=== PATIENT | female | born 1960 | race Two or more races ===

== ENCOUNTER 2018-10-08 06:36 | Day surgery (SDC) | payer OTHER ==
[~2018-10-08 06:36] MED LIST: OLMESARTAN-HCT1 EACH PO; SINGULAIR10 MG PO
[2018-10-08] MEDS ORDERED: NAPROXEN SODIU550 MG PO (13:20)
== END 2018-10-08 14:05 | disposition home or self-care (01) ==
LOC: CIR.AMB 06:36
DX: N84.0 Polyp of corpus uteri (principal)

== ENCOUNTER 2022-09-26 06:46 | Day surgery (SDC) | payer OTHER ==
[~2022-09-26] VITALS: Ht 162.6 cm; Wt 108.9 kg
[~2022-09-26 06:46] MED LIST changes: +BENICAR HCT 201 EACH PO; +EC PO; +NAPROXEN SODIU550 MG PO; +VITAMIN C100 MG PO; +VITAMIN E PO
[2022-09-26] MEDS ORDERED: IBU600 MG PO (10:27)
== END 2022-09-26 15:15 | disposition home or self-care (01) ==
LOC: CIR.AMB 06:46
PROVIDERS: ATTEND Obstetrics & Gynecology Gynecology
DX: N84.0 Polyp of corpus uteri (principal); Z20.822 Contact with and (suspected) exposure to COVID-19; I10 Essential (primary) hypertension

== ENCOUNTER 2023-01-11 15:58 | Inpatient (IN) | payer OTHER ==
[~2023-01-11] VITALS: Ht 162.6 cm; Wt 101.6 kg
[~2023-01-11 15:58] MED LIST changes: +IBU600 MG PO
[2023-01-12] MEDS ORDERED: LOSART PO (13:25)
[2023-01-16] MEDS ORDERED: OLMESARTAN MEDO20 MG (08:42)
[2023-01-16] MEDS ORDERED: MEGESTROL ACETA20 MG (08:42)
[2023-01-16] MEDS ORDERED: HYDRODIURIL12.5 MG (08:42)
[2023-01-16] MEDS ORDERED: COZAAR25 MG (08:43)
[2023-01-16] MEDS ORDERED: ECHINACEA65 MG (08:43)
[2023-01-16] MEDS ORDERED: VITAMIN E400 UNI7 (08:44)
[2023-01-16] MEDS ORDERED: CINNAMON EXTRA500 MG (08:44)
[2023-01-17] MEDS ORDERED: IBU800 MG PO (07:04)
[2023-01-17] MEDS ORDERED: CIPRO500 MG PO (07:04)
[2023-01-17] MEDS ORDERED: NEURONTIN300 MG PO (07:05)
== END 2023-01-17 09:12 | disposition home or self-care (01) | DRG 743 ==
LOC: O/R 01-16 06:24 → OB/GYN 01-16 10:39
PROVIDERS: ADMIT Obstetrics & Gynecology Gynecology; ATTEND Obstetrics & Gynecology Gynecology
PROC: 0UT74ZZ Resection of Bilateral Fallopian Tubes, Percutaneous Endoscopic Approach (ICD-10-PCS; 2023-01-16)
PROC: 0UT94ZZ Resection of Uterus, Percutaneous Endoscopic Approach (ICD-10-PCS; principal; 2023-01-16 10:45)
DX: D25.1 Intramural leiomyoma of uterus (principal); D25.2 Subserosal leiomyoma of uterus; Z20.822 Contact with and (suspected) exposure to COVID-19